=== PATIENT | male | born 1955 | race Caucasian/White ===

== ENCOUNTER 2016-11-04 22:49 | Emergency (ER) | payer OTHER ==
[~2016-11-04] VITALS: Ht 185.4 cm; Wt 86.2 kg
[~2016-11-04 22:49] MED LIST: ASPIRIN EC81 M1 PO; ASPIRIN81 M4 PO; CYCLOBENZAPRINE10 M1 PO; CYMBALTA30 M1 PO; CYMBALTA60 MG PO; ELAVIL25 MG PO; GABAPENTIN300 M2 PO; GABAPENTIN300 MG PO; LIPITOR40 M1 PO; LISINOPRIL40 M1 PO; NEURONTIN400 M1 PO; NORVASC5 M1 PO; PANTOPRAZOLE SO40 M1 PO; PANTOPRAZOLE SO40 MG PO; PERCOCET 325 MG1 TA2 PO
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
[2016-11-05] MEDS ORDERED: VALIUM5 M2 PO (00:12)
[2016-11-05] MEDS ORDERED: IBUPROFEN800 M1 PO (00:12)
[2016-11-05] MEDS ORDERED: PERCOCET 5-3251 EACH PO (00:12)
[2016-11-05 00:43] VITALS: BP 148/80
== END 2016-11-05 00:43 ==
LOC: ERH 22:49
DX: M54.42 Lumbago with sciatica, left side (principal)
CPT/HCPCS: 96372; J1885; J3360

== ENCOUNTER 2016-11-18 19:21 | Emergency (ER) | payer OTHER ==
[~2016-11-18] VITALS: Ht 185.4 cm; Wt 83.9 kg
[~2016-11-18 19:21] MED LIST changes: +IBUPROFEN800 M1 PO; +PERCOCET 5-3251 EACH PO; +VALIUM5 M2 PO
--- NOTE | 2016-11-18 22:07 | ED NECK/BACK PAIN COMPLAINT ---
History of Present Illness General Chief Complaint: Low Back Pain/Injury Stated Complaint: BACK PAIN Source: patient, old records Exam Limitations: no limitations Vital Signs & Intake/Output Vital Signs & Intake/Output Vital Signs Date Time Temp Pulse Resp B/P Pulse O2 O2 Flow FiO2 Ox Delivery Rate 11/19 0014 97.6 86 20 177/116 99 Room Air 11/18 2219 96.0 100 20 201/109 95 Room Air 11/18 2045 Room Air 11/18 1951 98.5 102 18 189/105 98 Room Air ED Intake and Output 11/19 0000 11/18 1200 Intake Total 0 Output Total Balance 0 Intake, Oral 0 Patient 185 lb Weight Allergies Coded Allergies: NO KNOWN ALLERGIES (03/17/16) Reconcile Medications Amlodipine Besylate (Norvasc) 5 MG TABLET 1 TAB PO DAILY blood pressure Aspirin (Aspirin*) 81 MG TAB.CHEW 1 TAB PO DAILY heart health Atorvastatin Calcium (Lipitor) 40 MG TABLET 1 TAB PO DAILY cholesterol Cyclobenzaprine HCl 10 MG TABLET 1 TAB PO TID PRN MUSCLE RELAXANT (Reported) Diazepam (Valium) 5 MG TABLET 1 TAB PO BIDP PRN SPASM Duloxetine Hydrochloride (Cymbalta) 30 MG CAPSULE.DR 1 CAP PO DAILY MENTAL HEALTH (Reported) Gabapentin 300 MG CAPSULE 900 MG PO TID NEUROPATHY (Reported) Ibuprofen 800 MG TABLET 1 TAB PO TID PAIN Lisinopril 40 MG TABLET 1 TAB PO DAILY BLOOD PRESSURE (Reported) Oxycodone HCl/Acetaminophen (Percocet 5-325 MG Tablet) 5 MG-325 MG TABLET 1 TAB PO Q4-6 PRN PAIN Pantoprazole Sodium 40 MG TABLET.DR 1 TAB PO BID ACID REFLUX (Reported) Triage Note: RECEIVED 61 YO MALE C/O SEVERE LOWER BACK PAIN RADIATING DOWN BOTH LEGS WITH NUMBNESS AND TINGLING. PT WAS LIFTING HEAVY ROCKS 2 DAYS AGO AND HE WOKE UP IN THE AM WITH SEVERE PAIN. Triage Nurses Notes Reviewed? yes Onset: Abrupt Duration: day(s):, continues in ED, getting worse Quality/Severity: severe Location: LOWER BACK Radiation: upper legs HPI: Patient presents for evaluation of severe constant back pain that began gradually about 2-3 days ago after moving rocks and wheelbarrow. Patient has a history of chronic back and neck pain. He denies any urinary or fecal incontinence or urinary retention. Denies any fever or cold symptoms. Past History Travel History Traveled to [place] past 21 day No Medical History Any Pertinent Medical History? 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 No Review of Systems Review of Systems Constitutional: Reports: no symptoms. Eyes: Reports: no symptoms. Ears, Nose, Throat, Mouth: Reports: no symptoms. Respiratory: Reports: no symptoms. Cardiovascular: Reports: no symptoms. Gastrointestinal/Abdominal: Reports: no symptoms. Musculoskeletal: Reports: see HPI. Skin: Reports: no symptoms. Neurological/Psychological: Reports: no symptoms. All Other Systems: Reviewed and Negative Physical Exam Physical Exam Neck: see below Comments: Gen.: Well-nourished, well-developed, no acute respiratory distress. Head: Normocephalic, atraumatic. Eyes: Normal inspection bilaterally Ears: Normal inspection bilaterally Nose: Normal inspection Throat/mouth : Moist mucosa Neck: Supple, full range of motion, no goiter Lungs: Quiet respirations Back: Decreased range of motion secondary to pain, tenderness over the sacral iliac region bilaterally, no soft tissue swelling erythema or ecchymoses. Abdomen: Soft, nontender, nondistended, normal bowel sounds Extremities: Normal range of motion grossly, equal radial pulses, no cyanosis clubbing or edema, no straight leg raise sign of the lower extremities. No saddle paresthesias. Lower extremity deep tendon reflexes normal. Sensation intact to light touch. Strength normal to lower extremities. Neurologic: Cranial nerves grossly intact, speech is clear Skin: warm and dry Psychiatric: Calm, cooperative, no apparent delusions or hallucinations Progress Differential Diagnosis: cauda equina syn, herniated disc, myofascial strain Plan of Care: Orders Procedure Date/time Status CT LUMB SPINE WO IV CONTRAST 11/18 2206 Active Diagnostic Imaging: Discussed w/RAD: CT Scan. Radiology Impression: PATIENT: DEENA MARTINEZ PRESENT AGE: 61 PATIENT ACCOUNT NO: [id number] : 53 LOCATION: [facility] ORDERING PHYSICIAN: SHAYLA CARRERA MD SERVICE DATE: 11/18/16 EXAM TYPE: CAT - CT LUMB SPINE WO IV CONTRAST EXAMINATION: CT LUMBAR SPINE WITHOUT CONTRAST CLINICAL INFORMATION: Low back pain radiating into both legs. COMPARISON: CT scan of the abdomen and pelvis 06/24/2013. TECHNIQUE: Helical non-contrast CT images were obtained through the lumbar spine and 1.25 and 2.5 mm axial reconstructions were reviewed along with sagittal and coronal MPRs. DLP: 614.62 mGy-cm FINDINGS: There is slight grade 1 retrolisthesis of L5 on S1. Vertebral alignment is otherwise maintained in the sagittal dimension. Vertebral body heights are preserved. No acute fracture. There is loss of intervertebral disc height with associated sclerotic degenerative endplate changes and intervertebral vacuum disc phenomenon at L5-S1. Disc osteophyte spurring is visualized at multiple levels. At T12-L1 there is no canal or neuroforaminal compromise. At L1-L2 there is an asymmetric annular bulge to the right. Grossly no canal or neuroforaminal compromise. At L2-L3 there is a shallow central protrusion. The canal is not well assessed. No neuroforaminal encroachment. At L3-L4 there is a diffusely bulging disc causing ventral flattening of the thecal sac. Bilateral facet degenerative change with thickening of the ligamenta flava. The canal is not well assessed. No more than mild mass effect on the foraminal segments of both L3 nerve roots. At L4-L5 there is a broad right central to subarticular protrusion that causes asymmetric narrowing right subarticular zone. Grossly no canal stenosis. There is bilateral facet degenerative change. There is likely medial displacement and possible compression of the right traversing L5 nerve roots. Mild compression of the foraminal segment of the right L4 nerve root. At L5-S1 there is a broad shallow right central protrusion that causes indentation of the ventral thecal sac. Grossly no canal stenosis. There is mild to moderate compression of the foraminal segment of the right L5 nerve root. Limited visualization of the retroperitoneal structures reveals no abnormal finding. Calcified atherosclerotic plaque involves the abdominal aorta and iliac vessels. IMPRESSION: There is multilevel degenerative spondylosis of the lumbar spine that is most advanced at the level of L5-S1 and there is slight grade 1 retrolisthesis of L5 on S1. The canal is not well assessed on this examination due to inherent limitations of CT. If there is a clinical concern for compressive neuropathy then a dedicated lumbar spine MRI should be obtained. There is no acute fracture. There are varying degrees of mass effect on the foraminal segments the nerve roots as described above. For instance at L5-S1 there is mild to moderate compression of the foraminal segment of the right L5 nerve root. DICTATED BY: ROXANNE ROBLERO MD DATE/TIME DICTATED:11/18/162345 SIXTH GRADE TEACHER:BRANDY DATE/TIME TRANSCRIBED:11/18/162345 CONFIDENTIAL, DO NOT COPY WITHOUT APPROPRIATE AUTHORIZATION. <Electronically signed in Other Vendor System> SIGNED BY: ROXANNE ROBLERO MD 11/18/16 4555 Comments: 11/19/2016 12:35:04 AM patient asked repeatedly for pain medication due to his chronic back issues. I updated all on his CAT scan result and also advised him of his multiple narcotic prescriptions and a variety of different pharmacies in different cities in the [facility] [place]. He initially stated that nobody wanted to give him any pain medication but it seems that he has had repeated narcotic prescriptions including a 15 day supply of tramadol filled 14 days ago. The patient walked out of the emergency department without discharge instructions after I informed him that I would treat him with anti- inflammatories and muscle relaxers. he walked briskly out of the emergency department. Departure Departure Disposition: LEFT AGAINST MEDICAL ADVICE Condition: Stable Clinical Impression Primary Impression: Acute exacerbation of chronic low back pain Secondary Impressions: Degenerative disc disease, lumbar Referrals: COLUMBA VELARDE,TIMO Gabriel (PCP/Family) Departure Forms: Customer Survey General Discharge Information
--- NOTE | 2016-11-18 23:58 | CT SCAN REPORT ---
EXAMINATION: CT LUMBAR SPINE WITHOUT CONTRAST CLINICAL INFORMATION: Low back pain radiating into both legs. COMPARISON: CT scan of the abdomen and pelvis 06/24/2013. TECHNIQUE: Helical non-contrast CT images were obtained through the lumbar spine and 1.25 and 2.5 mm axial reconstructions were reviewed along with sagittal and coronal MPRs. DLP: 614.62 mGy-cm FINDINGS: There is slight grade 1 retrolisthesis of L5 on S1. Vertebral alignment is otherwise maintained in the sagittal dimension. Vertebral body heights are preserved. No acute fracture. There is loss of intervertebral disc height with associated sclerotic degenerative endplate changes and intervertebral vacuum disc phenomenon at L5-S1. Disc osteophyte spurring is visualized at multiple levels. At T12-L1 there is no canal or neuroforaminal compromise. At L1-L2 there is an asymmetric annular bulge to the right. Grossly no canal or neuroforaminal compromise. At L2-L3 there is a shallow central protrusion. The canal is not well assessed. No neuroforaminal encroachment. At L3-L4 there is a diffusely bulging disc causing ventral flattening of the thecal sac. Bilateral facet degenerative change with thickening of the ligamenta flava. The canal is not well assessed. No more than mild mass effect on the foraminal segments of both L3 nerve roots. At L4-L5 there is a broad right central to subarticular protrusion that causes asymmetric narrowing right subarticular zone. Grossly no canal stenosis. There is bilateral facet degenerative change. There is likely medial displacement and possible compression of the right traversing L5 nerve roots. Mild compression of the foraminal segment of the right L4 nerve root. At L5-S1 there is a broad shallow right central protrusion that causes indentation of the ventral thecal sac. Grossly no canal stenosis. There is mild to moderate compression of the foraminal segment of the right L5 nerve root. Limited visualization of the retroperitoneal structures reveals no abnormal finding. Calcified atherosclerotic plaque involves the abdominal aorta and iliac vessels. IMPRESSION: There is multilevel degenerative spondylosis of the lumbar spine that is most advanced at the level of L5-S1 and there is slight grade 1 retrolisthesis of L5 on S1. The canal is not well assessed on this examination due to inherent limitations of CT. If there is a clinical concern for compressive neuropathy then a dedicated lumbar spine MRI should be obtained. There is no acute fracture. There are varying degrees of mass effect on the foraminal segments the nerve roots as described above. For instance at L5-S1 there is mild to moderate compression of the foraminal segment of the right L5 nerve root.
[2016-11-19 00:14] VITALS: BP 177/116
== END 2016-11-19 00:43 | disposition left against medical advice (07) ==
LOC: ERH 19:21
DX: G89.29 Other chronic pain (principal); M54.5 Low back pain; M51.36 Other intervertebral disc degeneration, lumbar region
CPT/HCPCS: 96372; J1885

== ENCOUNTER 2017-02-03 16:41 | Emergency (ER) | payer OTHER ==
[~2017-02-03] VITALS: Ht 185.4 cm; Wt 86.2 kg
[~2017-02-03 16:41] MED LIST changes: +IBUPROFEN600 M1 PO
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
[2017-02-03] MEDS ORDERED: PERCOCET 5-3251 EACH PO (17:02)
[2017-02-03 17:05] VITALS: BP 182/90
[2017-02-03] MEDS ORDERED: HYDROCODON-ACE1 EAC2 PO (18:55)
== END 2017-02-03 17:34 ==
LOC: ERH 16:41
DX: S29.011A Strain of muscle and tendon of front wall of thorax, initial encounter (principal); S20.212A Contusion of left front wall of thorax, initial encounter; V49.9XXA Car occupant (driver) (passenger) injured in unspecified traffic accident, initial encounter; Y92.9 Unspecified place or not applicable

== ENCOUNTER 2018-02-25 03:06 | Emergency (ER) | payer OTHER ==
[~2018-02-25] VITALS: Ht 185.4 cm; Wt 86.2 kg
[~2018-02-25 03:06] MED LIST changes: +AZITHROMYCIN250 M1 PO; +CARAFATE1 G1 PO; +CHERATUSSIN AC118 M1 PO; +HYDROCODON-ACE1 EAC2 PO; +HYDROCODON-ACE1 EAC3 PO; +LEVAQUIN500 M1 PO; +MELOXICAM15 M1 PO; +OLANZAPINE5 M2 PO; +OXYCODONE-ACET1 EACH PO; +TESSALON PERLE100 M1 PO; +TRAMADOL HCL50 M1 PO; +VENTOLIN HFA18 GM INH; +VICODIN 5-3001 EACH PO; +VICODIN ES 7.51 EACH PO
[2018-02-25 03:45] VITALS: BP 144/81
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
--- NOTE | 2018-02-25 04:54 | RADIOLOGY REPORT ---
EXAMINATION: LUMBOSACRAL SPINE 3 VIEWS CLINICAL INFORMATION: Pain following injury. COMPARISON: April 02, 2017. TECHNIQUE: AP, lateral, spot lateral views of the lumbosacral spine are provided. FINDINGS: There are no fractures. The lumbar vertebrae are in normal alignment. There is moderate disc height loss at L5/S1. Disc heights and vertebral body heights are otherwise well-preserved. IMPRESSION: Mild lower lumbar spine degenerative change. No evidence for acute injury.
[2018-02-25] MEDS ORDERED: NORCO 5-325 TA1 EACH PO ×2 (05:02→05:39)
== END 2018-02-25 05:15 ==
LOC: ERH 03:06
DX: M54.5 Low back pain (principal)
CPT/HCPCS: 72110